=== PATIENT | female | born 1960 | race Caucasian/White ===

== ENCOUNTER 2017-03-26 14:55 | Outpatient (CLI) ==
[2015-05-02 14:33] VITALS: BMI 42.2
--- NOTE | 2017-03-26 15:41 | US ---
EXAM: ULTRASOUND LOWER EXTREMITY VENOUS DOPPLER EXAM HISTORY: Pain and left leg. FINDINGS: Left lower extremity venous Doppler exam. Real time adorno-scale, Doppler spectral analysis and color-flow Doppler imaging performed. The veins targeted for evaluation include the common femor al, greater saphenous, profundus, femoral, popliteal, peroneal, anterior tibial and posterior tibial. The evaluated veins demonstrated normal spontaneous flow and compression without evidence of throm bosis. IMPRESSION: No venous thrombosis identified within the areas evaluated.
== END 2017-03-26 14:56 | disposition home or self-care (01) ==
LOC: RAD 14:55
PROVIDERS: ATTEND Emergency Medicine
DX: M79.605 Pain in left leg (principal)

== ENCOUNTER 2017-03-27 10:37 | Outpatient (CLI) ==
[2015-05-02 14:33] VITALS: BMI 42.2
--- NOTE | 2017-03-27 11:58 | CT ---
Exam: CT of the left knee without intravenous contrast. Comparison: X-ray performed on 12/18/2011. Reason for exam: Pain in left knee. FINDINGS: No acute fracture or malalignment. There is moderate degenerative disease with tricompart mental osteophyte formation and joint space narrowing. There is a small to moderately sized joint ef fusion. Atherosclerotic disease is seen within the soft tissues. Impression: 1. No acute fracture or dislocation in the left knee. 2. Small to moderately sized joint effusion with inflammatory change. If clinical concern exists fo r soft tissue injury or ligamentous injury, MRI may be performed. 3. Moderate degenerative disease with tricompartmental arthrosis and joint space narrowing.
== END 2017-03-27 10:38 | disposition home or self-care (01) ==
LOC: RAD 10:37
PROVIDERS: ATTEND Emergency Medicine
DX: M25.562 Pain in left knee (principal)

== ENCOUNTER 2017-05-21 15:47 | Outpatient (CLI) ==
[2015-05-02 14:33] VITALS: BMI 42.2
--- NOTE | 2017-05-21 16:38 | US ---
EXAM: Bilateral carotid artery Doppler History: Dizziness and giddiness Technique: Multiple sonographic images through the bilateral internal carotid arteries were obtained . Color duplex Doppler was used to interrogate vascular flow. Findings: The right ICA peak systolic velocity is within normal limits measuring 0.7 meters per second. The ri ght ICA/cca PSV ratio is normal at 1.6. The right vertebral artery is patent and demonstrates antegr ruddy flow. Nye scale images demonstrate mild plaque buildup within the right internal carotid artery . The left ICA peak systolic velocity is moderately elevated measuring 1.6 meters per second. The left ICA/cca PSV ratio is moderately increased at 2.1. The left vertebral artery is patent and demonstra narendra antegrade flow. Nye scale images demonstrate mild to moderate plaque buildup within the left in ternal carotid artery. The left internal carotid artery is somewhat tortuous. Impression: 1. No significant hemodynamic stenosis of the right internal carotid artery. 2. Velocities and ratios indicate moderate, 50-69% hemodynamic stenosis of the left internal carotid artery but this might be spurious related to arterial tortuosity. Clarification can be obtained with a CTA of the neck if deemed clinically necessary.
== END 2017-05-21 15:48 | disposition home or self-care (01) ==
LOC: RAD 15:47
PROVIDERS: ATTEND Emergency Medicine
DX: N18.3 Chronic kidney disease, stage 3 (moderate) (principal); I10 Essential (primary) hypertension; L65.9 Nonscarring hair loss, unspecified; R42 Dizziness and giddiness; E11.9 Type 2 diabetes mellitus without complications; Z79.4 Long term (current) use of insulin
CPT/HCPCS: 36415; 80053; 80061; 82672; 83036; 84443; 85025

== ENCOUNTER 2017-05-26 14:20 | Inpatient (IN) ==
[2017-05-26] MEDS ORDERED: SODIUM CHLORIDE 1,000 ML IV SCH (15:00)
[2017-05-26 15:11] VITALS: BMI 43.6
--- NOTE | 2017-05-26 16:10 | CT ---
EXAM: CT chest without contrast. HISTORY: Shortness of breath. COMPARISON: Radiograph 05/02/2015, 10/10/2014. TECHNIQUE: Multiple axial images of the chest were obtained without intravenous contrast. Images we re reformatted in the sagittal and coronal planes. FINDINGS: Evaluation for lymphadenopathy is limited by lack of intravenous contrast. There has been previous sternotomy. Heart is mildly enlarged but atherosclerotic calcifications are present. No p ericardial effusion identified. There are calcified granulomatous changes noted bilaterally. Rounded subpleural consolidation in the lateral left lung measures approximately 3.2 x 2 cm on axial image 22. Additional curvilinear areas of consolidation seen in the posterior left lung with adjacent pleural thickening and a tiny amount of left pleural fluid. These findings are similar to the appearance on previous radiographs. Right lung is grossly clear. No pneumothorax identified. No acute abnormality seen in the upper abdomen. There has been previous gastric surgery. Degenerati ve changes present in the spine.. IMPRESSION: 1. Suspect left pleural parenchymal scarring with rounded atelectasis and tiny left pleural effusion , not significantly changed in appearance from radiographs dating back to 2014. 2. Evidence of prior granulomatous disease.
[2017-05-26] MEDS ORDERED: KAYEXALATE SUSP PO STA (16:11)
[2017-05-26] MEDS ORDERED: LASIX IVP STA (16:13)
[2017-05-26] MEDS ORDERED: DECADRON 4 MG/ML SDV IVP STA (16:15)
[2017-05-26] MEDS: ROCEPHIN 1 GM in SODIUM CHLORIDE 50 ML IV SCH (16:33)
[2017-05-26] MEDS: TYLENOL PO PRN (16:34)
[2017-05-26] MEDS: SODIUM CHLORIDE 1,000 ML IV SCH (16:34)
[2017-05-26] MEDS: TOPROL XL PO SCH (20:18)
[2017-05-26] MEDS ORDERED: INSULIN DEGLUDEC SUBCUT SCH (21:00)
[2017-05-26] MEDS: DUONEB NEB SCH (22:35)
[2017-05-27] MEDS: DUONEB NEB SCH ×2 (06:05→14:41)
[2017-05-27] MEDS: SODIUM CHLORIDE 1,000 ML IV SCH (06:06)
[2017-05-27] MEDS ORDERED: DECADRON 4 MG/ML SDV IVP STA (07:59)
[2017-05-27] MEDS ORDERED: NON-FORMULARY MEDICATION (Olmesartan Medoxomil [Benicar] 40 MG) PO SCH (09:00)
[2017-05-27] MEDS ORDERED: ISOSORBIDE MONONITRATE 120 MG PO SCH (09:00)
[2017-05-27] MEDS ORDERED: NON-FORMULARY MEDICATION (Bumetanide [Bumetanide] 2 MG) PO SCH (09:00)
[2017-05-27] MEDS: ROCEPHIN 1 GM in SODIUM CHLORIDE 50 ML IV SCH (09:01)
[2017-05-27] MEDS: BENICAR PO SCH (09:02)
[2017-05-27] MEDS: BUMEX PO SCH (09:03)
[2017-05-27] MEDS: IMDUR PO SCH (09:03)
[2017-05-27] MEDS: TOPROL XL PO SCH ×2 (09:03→20:35)
[2017-05-27] MEDS: HUMULIN R SUBCUT PRN ×3 (11:18→20:51)
[2017-05-27] MEDS ORDERED: KAYEXALATE SUSP PO STA (13:45)
[2017-05-27] MEDS: INSULIN DEGLUDEC 55 UNIT SUBCUT SCH (20:35)
[2017-05-27] MEDS ORDERED: BENADRYL PO STA (20:57)
[2017-05-27] MEDS ORDERED: SOLU-MEDROL 40 MG IVP STA (20:58)
[2017-05-27] MEDS ORDERED: INSULIN DEGLUDEC SUBCUT SCH (21:00)
[2017-05-28] MEDS: SODIUM CHLORIDE 1,000 ML IV SCH (02:20)
[2017-05-28] MEDS: HUMULIN R SUBCUT PRN ×2 (06:09→12:48)
[2017-05-28] MEDS: BENICAR PO SCH (09:36)
[2017-05-28] MEDS: BUMEX PO SCH (09:37)
[2017-05-28] MEDS: TOPROL XL PO SCH ×2 (09:38→20:55)
[2017-05-28] MEDS: IMDUR PO SCH (09:38)
[2017-05-28] MEDS: ROCEPHIN 1 GM in SODIUM CHLORIDE 50 ML IV SCH (09:40)
--- NOTE | 2017-05-28 11:23 | PN ---
DATE OF SERVICE: 05/27/17 SUBJECTIVE: The patient was admitted from the office yesterday for the COPD exacerbation secondary to pneumonia and acute on chronic heart failure and hyperkalemia. The patient was given a dose of Kayexalate. Potassium came down from 5.7 to 5.4. BNP was 659. REVIEW OF SYSTEMS: CONSTITUTIONAL: No fever, no chills. HEENT: Normal. ENDOCRINE: No weight gain, no weight loss. CVS: No angina symptoms. No CHF symptoms. No palpitations. No atypical chest pain for CAD. Shortness of breath. No PND, no orthopnea. RESPIRATORY: Cough and Congestion, no hemoptysis. GI: No nausea, no vomiting. No abdominal pain. : No hematuria. No polyuria. MUSCULOSKELETAL: No joint swelling. PSYCHIATRIC: Not anxious. No depression. No suicidal thoughts. No homicidal thoughts. SKIN: Intact. No rash. PHYSICAL EXAMINATION: V/S: Blood pressure 155/63, respiratory rate 20, heart rate 60, temperature 98.0 with saturation 97 on 2 liters nasal cannula. HEENT: Normocephalic, atraumatic. Mucosa dry. Pallor positive. No icterus. NECK: Supple. No JVD, no carotid bruit. No lymphadenopathy. LUNGS: Decreased and basilar crackles. Mild wheezing on the left side.No rales or rhonchi. HEART: S1, S2 normal. No S3. No murmur, gallop or regurgitation. ABDOMEN: Soft, nontender. Bowel sounds active. No rigidity. No rebound or guarding. No CVA tenderness. EXTREMITIES: No pedal edema. No clubbing or cyanosis MUSCULOSKELETAL: No joint swelling. NEUROLOGIC: Awake, alert, oriented times three. No focal deficit. LYMPHATIC: No lymph nodes palpable. SKIN: Intact. LABS: Sodium 139, potassium 5.4, chloride 105, bicarb 25, BUN 33, creatinine 1.36 and glucose 353. ASSESSMENT: 1. Acute on chronic heart failure 2. COPD exacerbation secondary to the community acquired pneumonia 3. Acute on chronic renal failure 4. Hyperkalemia 5. Diabetes 6. Coronary artery disease 7. Congestive heart failure PLAN: 1. Continue Rocephin 2. DUO NEBS 3. IV Fluids at 40ml per hour 4. Give one more dose of Kayexalate 5. Decadron shot 6. Daily I&O's TIME SPENT: More than 35 minutes ИВАН
--- NOTE | 2017-05-28 12:24 | DI ---
EXAM: Chest one view, frontal view only. HISTORY: Pneumonia follow-up. COMPARISON: 05/26/2017. FINDINGS: Median sternotomy wires and mediastinal surgical clips noted. Heart is mildly enlarged. Chronic left pleural effusion with adjacent pleural scarring is stable. Lungs otherwise clear. No p neumothorax identified. Osseous structures are intact. Since the prior study, there has been no sign ificant interval change. IMPRESSION: Stable left pleural parenchymal scarring.
[2017-05-28] MEDS: APRESOLINE PO SCH ×2 (17:18→20:55)
[2017-05-28] MEDS: INSULIN DEGLUDEC 55 UNIT SUBCUT SCH (20:56)
[2017-05-29] MEDS: ROCEPHIN 1 GM in SODIUM CHLORIDE 50 ML IV SCH (08:58)
[2017-05-29] MEDS: APRESOLINE PO SCH ×2 (08:59→22:54)
[2017-05-29] MEDS: IMDUR PO SCH (08:59)
[2017-05-29] MEDS: BENICAR PO SCH (08:59)
[2017-05-29] MEDS: TOPROL XL PO SCH ×2 (09:01→22:54)
[2017-05-29] MEDS: BUMEX PO SCH (09:01)
[2017-05-29] MEDS ORDERED: SODIUM CHLORIDE 1,000 ML IV SCH ×2 (13:00→15:30)
[2017-05-29] MEDS ORDERED: ATROVENT 0.02% NEB NEB SCH (14:00)
--- NOTE | 2017-05-29 14:37 | PN ---
DATE OF SERVICE: 05/28/17 SUBJECTIVE: Still short of breath with minimal exertion, cough and congestion, unable to bring up any phlegm. No fever or chills. Stressed out being at the hospital. BUN and creatinine are stable. Potassium normal today at 5.1. REVIEW OF SYSTEMS: CONSTITUTIONAL: No fever, no chills. HEENT: Normal. ENDOCRINE: No weight gain, no weight loss. CVS: No angina symptoms. No CHF symptoms. No palpitations. No atypical chest pain for CAD. Shortness of breath on minimal exertion. No PND, no orthopnea. RESPIRATORY: Cough and congestion. No hemoptysis. GI: No nausea, no vomiting. No abdominal pain. : No hematuria. No polyuria. MUSCULOSKELETAL: No joint swelling. PSYCHIATRIC: Not anxious. No depression. No suicidal thoughts. No homicidal thoughts. SKIN: Intact. No rash. PHYSICAL EXAMINATION: V/S: BP 167/63, respiratory rate 18, heart rate 53, temperature 97.6, saturation 97% on room air. HEENT: Normocephalic, atraumatic. Mucosa dry. NECK: Supple. No JVD, no carotid bruit. No lymphadenopathy. LUNGS: Decreased with basilar crackles. Mild wheezing on left side. HEART: S1, S2 normal. No S3. No murmur, gallop or regurgitation. ABDOMEN: Soft, nontender. Bowel sounds active. No rigidity. No rebound or guarding. No CVA tenderness. EXTREMITIES: 1+ edema. No clubbing or cyanosis MUSCULOSKELETAL: No joint swelling. NEUROLOGIC: Awake, alert, oriented times three. No focal deficit. LYMPHATIC: No lymph nodes palpable. SKIN: Intact. LABS: Sodium 139, potassium 5.1, chloride 103, bicarb 24, BUN 38, creatinine 1.31, glucose 322. White count 8.90, hemoglobin 9.5, hematocrit 27.3, platelet count 169. ASSESSMENT: 1. COPD EXACERBATION SECONDARY TO LEFT BASE PNEUMONIA. THE PATIENT HAS CHRONIC SCARRING OF THE LUNG. 2. ACUTE ON CHRONIC RENAL FAILURE. 3. HYPERKALEMIA, WHICH IS BETTER. 4. HYPERTENSION. 5. DIABETES. 6. CAD. 7. CHF. PLAN: 1. Continue Rocephin. 2. Solu-Medrol 40 was given yesterday. 3. Duonebs are on hold because there was some question, confusion that she may be allergic. 4. Rocephin 1 gm daily. 5. Bumex 2 mg p.o. daily. 6. Daily I & O. 7. Will follow with the patient in daily rounds. TIME SPENT: More than 35 minutes MTDD
[2017-05-29] MEDS: TYLENOL PO PRN (15:38)
[2017-05-29] MEDS: INSULIN DEGLUDEC 55 UNIT SUBCUT SCH (22:53)
[2017-05-30] MEDS ORDERED: BUMEX PO SCH (09:00)
[2017-05-30] MEDS: ROCEPHIN 1 GM in SODIUM CHLORIDE 50 ML IV SCH (09:08)
[2017-05-30] MEDS: BENICAR PO SCH (09:08)
[2017-05-30] MEDS: TOPROL XL PO SCH (09:09)
[2017-05-30] MEDS: IMDUR PO SCH (09:09)
[2017-05-30] MEDS: APRESOLINE PO SCH (09:09)
[2017-05-30 14:24] VITALS: BP 146/58; TEMP 98.1
--- NOTE | 2017-06-25 15:52 | DS ---
DATE OF SERVICE: 05/30/17 FINAL DIAGNOSIS: 1. COPD EXACERBATION SECONDARY TO COMMUNITY ACQUIRED PNEUMONIA 2. ACUTE ON CHRONIC HEART FAILURE 3. ACUTE ON CHRONIC RENAL FAILURE 4. DIABETES MELLITUS 5. CORONARY ARTERY DISEASE 6. CORONARY ARTERY BYPASS GRAFTING 7. PULMONARY HYPERTENSION 8. CKD, STAGE 3 9. OSTEOARTHRITIS 10. ANXIETY 11. GERD 12. TOTAL ABDOMINAL HYSTERECTOMY 13. APPENDECTOMY 14. UMBILICAL HERNIA REPAIR DISCHARGE INSTRUCTIONS: 1. Discharge the patient home. 2. Followup with Dr. Mullins in the Clinic on 06/03/17. Call the office for appointment time. If need to be seen sooner, return to the ER or make appointment for Thursday. 3. May not return to work until seen in the office. MEDICATIONS AT DISCHARGE: Bumex 1 mg p.o. daily Tylenol p.r.n. Tresiba 55 units at bedtime Regular insulin coverage Isosorbide 120 mg p.o. daily Benicar 40 mg p.o. daily NEW PRESCRIPTIONS: Hydralazine 25 mg p.o. b.i.d. Metoprolol decreased from 50 mg to 25 mg p.o. b.i.d. (change in dose) Prednisone 10 mg p.o. with meals twice a day for 5 days Keflex 500 mg p.o. twice a day for 5 days OF NOTE: The patient was on Metoprolol Succinate b.i.d. but we changed it to 25 mg b.i.d. to Tartrate as it is the short-acting one. DIET INSTRUCTIONS: 1800 ADA diet ACTIVITY: As much as tolerated. SMOKING: Never smoker DISEASE SPECIFIC EDUCATION: COPD CHF Fluid overload Salt intake discussed - the patient verbalizes understanding. HOSPITAL COURSE: This is a 57-year-old female with multiple medical problems of CAD, CHF, hypertension, history of bypass surgery. She came to the office initially with cough and congestion. She didn't want to be admitted, wanted to be treated as outpatient but condition was gradually getting worse. On 05/21 BUN was 42 and 1.56 which was elevated. At that time the patient was advised to come back and see us. She came back and patient had shortness of breath, cough and congestion. At that time, she was directly admitted from the office to the hospital. BNP was 659, BUN 33, creatinine 1.42. Lasix was given, potassium 5.7 , Kayexalate was given. Breathing treatment Duonebs were given. The patient was given Decadron shot. HBA1C is ordered. CT chest shows some congestion and pneumonia. Antibiotic Rocephin also given. On the third day, the patient had some kind of a reaction where she was feeling funny, itching to face after having Duoneb treatment. We were concerned that it may be a reaction to Duonebs so this was stopped and given a dose of Benadryl and steroids. BUN and creatinine gradually worsened up to 50 and 50/7. Urine output is good. Bumex decreased. Blood pressure was elevated 167/63, 174/73 so we ordered Hydralazine 10 mg twice a day then increased to 25 mg twice a day. As heart rate was low 50s to 54 and the patient was feeling light-headed, Metoprolol Succinate was decreased from 50 mg b.i.d. to 25 mg b.i.d. As of today, the patient is feeling better, less short of breath, less coughing, not dizzy anymore. At that time, the patient was discharged home. We will follow in the [facility] within 4 to 5 days. TIME SPENT: MORE THAN 65 MINUTES ИВАН
--- NOTE | 2017-06-26 11:24 | PN ---
DATE OF SERVICE: 05/29/17 SUBJECTIVE: The patient had an episode where her sugars were 70 and started feeling weakness. She began some cookies and juice to bring the sugar up. She has been feeling lightheaded. Heart rate is around 50's and when she was 53, 52 , 55, 50, she was feeling some lightheadedness. Shortness of breath with exertion. Some coughing with production of any phlegm. X-ray from yesterday showed the left basilar lung chronic changes. BUN went up to 50 and creatinine 1.58. No chest pain. REVIEW OF SYSTEMS: CONSTITUTIONAL: No fever, no chills. Weakness and lightheadedness. HEENT: Normal. ENDOCRINE: No weight gain, no weight loss. CVS: No angina symptoms. No CHF symptoms. No palpitations. No atypical chest pain for CAD. No shortness of breath. No PND, no orthopnea. RESPIRATORY: Cough, no hemoptysis. GI: No nausea, no vomiting. No abdominal pain. : No hematuria. No polyuria. MUSCULOSKELETAL: No joint swelling. PSYCHIATRIC: Not anxious. No depression. No suicidal thoughts. No homicidal thoughts. SKIN: Intact. No rash. PHYSICAL EXAMINATION: V/S: Blood pressure 130/62, respiratory rate 18, heart rate 58, temperature 97.6 , saturation 99. HEENT: Normocephalic, atraumatic. Mucosa dry. Pallor positive. No icterus. NECK: Supple. No JVD, no carotid bruit. No lymphadenopathy. LUNGS: Decreased basilar crackles, left more than the right. No rales or rhonchi. HEART: S1, S2 normal. No S3. No murmur, gallop or regurgitation. ABDOMEN: Soft, nontender. Bowel sounds active. No rigidity. No rebound or guarding. No CVA tenderness. EXTREMITIES: 1+ edema. No clubbing or cyanosis MUSCULOSKELETAL: No joint swelling. NEUROLOGIC: Awake, alert, oriented times three. No focal deficit. LYMPHATIC: No lymph nodes palpable. SKIN: Intact and dry. LABS: BUN and creatinine 50 and 1.58. Sodium 141, potassium 3.8, chloride 103 , white count 9.96, hemoglobin 10.4, hematocrit 29.6, platelet count 185. ASSESSMENT: 1. HYPOGLYCEMIA, 70, WHICH NEEDED SOME FOOD TO BE GIVEN TO THE PATIENT 2. BRADYCARDIA, SYMPTOMATIC WITH LIGHTHEADEDNESS. WILL CHANGE HER MEDICATIONS. 3. WORSENING KIDNEY FUNCTION 4. COPD EXACERBATION WITH LEFT BASILAR PNEUMONIA, COMMUNITY ACQUIRED, WHICH IS GETTING BETTER 5. ACUTE ON CHRONIC HEART FAILURE PLAN: 1. Start the IV fluids at 40 ml per hour. 2. Decrease the Metoprolol to 25 mg p.o. BID. 3. Increase the Hydralazine 25 mg every 12 hours. 4. Rocephin 1 gram daily. 5. Will give Ipratropium nebulization every 8 hours. 6. Daily I & O's. TIME SPENT: More than 35 minutes MTDD
== END 2017-05-30 14:36 | disposition home or self-care (01) | DRG 193 ==
LOC: MEDSURG A 14:20
PROVIDERS: ADMIT Emergency Medicine; ATTEND Emergency Medicine
DX: J18.9 Pneumonia, unspecified organism (principal); I50.23 Acute on chronic systolic (congestive) heart failure; J44.1 Chronic obstructive pulmonary disease with (acute) exacerbation; N17.9 Acute kidney failure, unspecified; R06.02 Shortness of breath; E11.22 Type 2 diabetes mellitus with diabetic chronic kidney disease; N18.3 Chronic kidney disease, stage 3 (moderate); I25.10 Atherosclerotic heart disease of native coronary artery without angina pectoris; F41.9 Anxiety disorder, unspecified; I27.20 Pulmonary hypertension, unspecified; E87.5 Hyperkalemia; J98.4 Other disorders of lung; K21.9 Gastro-esophageal reflux disease without esophagitis; E16.2 Hypoglycemia, unspecified; L50.9 Urticaria, unspecified; T48.6X5A Adverse effect of antiasthmatics, initial encounter; Y92.230 Patient room in hospital as the place of occurrence of the external cause; M19.90 Unspecified osteoarthritis, unspecified site; Z95.1 Presence of aortocoronary bypass graft; Z79.4 Long term (current) use of insulin; Z98.890 Other specified postprocedural states
CPT/HCPCS: 36415; 80053; 81001; 82550; 82803; 82962; 83880; 84484; 85025; 87086; 93005; 93010; 94640; 97802

== ENCOUNTER 2017-05-26 14:47 | Outpatient (CLI) ==
[2015-05-02 14:33] VITALS: BMI 42.2
== END 2017-05-26 14:48 | disposition home or self-care (01) ==
LOC: RHC-LAB 14:47
PROVIDERS: ATTEND Emergency Medicine
DX: J02.9 Acute pharyngitis, unspecified (principal); R68.89 Other general symptoms and signs
CPT/HCPCS: 87651; 87804

== ENCOUNTER 2017-06-03 15:04 | Outpatient (CLI) | payer OTHER ==
[2015-05-02 14:33] VITALS: BMI 42.2
== END 2017-06-03 15:05 | disposition home or self-care (01) ==
LOC: RHC-LAB 15:04
PROVIDERS: ATTEND Emergency Medicine
DX: N18.3 Chronic kidney disease, stage 3 (moderate) (principal)
CPT/HCPCS: 36415; 80053

== ENCOUNTER 2017-06-09 15:47 | Outpatient (CLI) ==
[2015-05-02 14:33] VITALS: BMI 42.2
[2017-06-09 18:02] VITALS: BMI 42.7
== END 2017-06-09 15:48 | disposition home or self-care (01) ==
LOC: RHC-LAB 15:47
PROVIDERS: ATTEND Emergency Medicine
DX: N18.3 Chronic kidney disease, stage 3 (moderate) (principal)
CPT/HCPCS: 36415; 80053

== ENCOUNTER 2017-06-09 17:24 | Inpatient (IN) ==
[2017-06-09 18:02] VITALS: BMI 42.7
[2017-06-09] MEDS ORDERED: KAYEXALATE SUSP PO STA (18:35)
[2017-06-09] MEDS: SODIUM CHLORIDE 1,000 ML IV SCH (18:49)
[2017-06-09] MEDS ORDERED: APRESOLINE ONE (20:14)
[2017-06-09] MEDS: LOPRESSOR PO SCH (20:18)
[2017-06-09] MEDS ORDERED: INSULIN DEGLUDEC 55 UNIT SQ SCH (21:00)
[2017-06-09] MEDS ORDERED: NON-FORMULARY MEDICATION (Hydralazine Hcl [Hydralazine Hcl] 25 MG) PO SCH (21:00)
[2017-06-10] MEDS ORDERED: NEOSPORIN TP SCH (07:30)
[2017-06-10] MEDS ORDERED: ISOSORBIDE MONONITRATE 120 MG PO SCH (09:00)
--- NOTE | 2017-06-10 09:39 | HP ---
DATE OF SERVICE: 06/09/17 CHIEF COMPLAINT: Abnormal labs. HISTORY OF PRESENT ILLNESS: This is a 57 year old female with a history of COPD, CHF and chronic kidney disease. Did do the outpatient blood work which showed her BUN is 60, creatinine 1.76 and potassium 6.1. With history of shortness of breath the patient is being admitted to the hospital for IV fluids and to correct the potassium. REVIEW OF SYSTEMS: CONSTITUTIONAL: No fever, no chills. Weakness and tiredness. HEENT: Normal. ENDOCRINE: No weight gain; no weight loss. CVS: No chest pain. No PND, no orthopnea. Shortness of breath. No PND, no orthopnea. RESPIRATORY: Cough, Congestion. No hemoptysis. GI: No nausea, no vomiting. No abdominal pain. No melena. : No hematuria. No polyuria. MUSCULOSKELETAL: No joint swelling. Leg edema. PSYCHIATRIC: Not anxious. No depression. No suicidal thoughts. No homicidal thoughts. SKIN: Intact, no open lesions. PAST MEDICAL HISTORY: CAD CHF Hypertension Dyslipidemia Atrial fibrillation status post ablation in 2009 Migraines Pulmonary hypertension Pleural effusion Umbilical hernia repair Chronic kidney disease stage 3 Severe anemia Hyperkalemia right now PAST SURGICAL HISTORY: CABG Neal en Y surgery Cholecystectomy Hysterectomy Umbilical herniorrhaphy PERSONAL HISTORY: The patient does not smoke or drink. She works at the school. Family History is significant for the heart problems and diabetes. MEDICATIONS: Isosorbide Benicar Bumetanide Metoprolol Hydralazine Insulin Neomycin ALLERGIES: Albuterol Epinephrine Gabapentin Hydrocodone PHYSICAL EXAMINATION: V/S: Blood pressure 150/66, respiratory rate 18, heart rate 66 and temperature 97.2 with saturation 97. HEENT: Atraumatic, normocephalic. No scleral icterus. Mucosa dry. NECK: Supple. No JVD, no bruit. No lymphadenopathy. No thyromegaly. HEART: S1, S2 normal. No murmur. No cyanosis or clubbing. No ascites. LUNGS: Decreased and basilar crackles. Clear to auscultation. No rales or rhonchi. ABDOMEN: Soft, nontender. Bowel sounds are active. No CVA tenderness. No rigidity or guarding. EXTREMITIES: 1+ edema. No cyanosis or clubbing MUSCULOSKELETAL: Normal joints, no swelling. NEUROLOGIC: The patient is awake and alert oriented times three SKIN: Intact; no open lesions. Dry. LYMPHATIC: No lymph nodes palpable. LABS: BUN 60, creatinine 1.76, glucose 227, Sodium 137, potassium 6.1, chloride 107, bicarb 24 ASSESSMENT: 1. Acute on chronic renal failure 2. Hyperkalemia 3. Coronary artery disease 4. Congestive heart failure 5. Bypass surgery 6. Diabetes mellitus 7. Chronic kidney disease 8. Dependant edema PLAN: 1. Admit patient to the regular floor 2. CBC and CMP today and daily 3. Cardiac enzymes and troponin 4. IV fluids 5. Hold Bumex TIME SPENT: MORE THAN 75 minutes MTDD
[2017-06-10] MEDS: BACTROBAN TP SCH ×2 (09:43→21:04)
[2017-06-10] MEDS: LOPRESSOR PO SCH ×2 (10:00→21:03)
[2017-06-10] MEDS: IMDUR PO SCH (10:00)
[2017-06-10] MEDS: APRESOLINE PO SCH ×2 (10:00→21:03)
[2017-06-10] MEDS: HUMULIN R SUBCUT PRN ×2 (12:30→21:03)
[2017-06-10] MEDS ORDERED: COZAAR PO ONE (14:43)
[2017-06-10] MEDS ORDERED: LOPRESSOR PO ONE (14:45)
--- NOTE | 2017-06-10 15:55 | DI ---
EXAM: Two-view chest HISTORY: Shortness of breath TECHNIQUE: Frontal and lateral views of the chest were obtained. Comparison 05/28/2017. FINDINGS: The heart is stable size. Midline sternotomy wires are again seen. There is stable blunt ing of the left costophrenic angle. Lungs are clear. The pulmonary vasculature appears normal. IMPRESSION: Stable appearance of pleural scarring on the left. Otherwise no active cardiopulmonary disease.
[2017-06-10] MEDS: SODIUM CHLORIDE 1,000 ML IV SCH (20:29)
[2017-06-10] MEDS ORDERED: INSULIN DEGLUDEC 55 UNIT SUBCUT SCH (21:00)
[2017-06-11] MEDS: IMDUR PO SCH (09:51)
[2017-06-11] MEDS: LOPRESSOR PO SCH ×2 (09:52→21:30)
[2017-06-11] MEDS: BACTROBAN TP SCH ×2 (09:52→21:23)
[2017-06-11] MEDS: APRESOLINE PO SCH ×2 (09:52→21:22)
[2017-06-11] MEDS ORDERED: BUMEX PO ONE (13:18)
[2017-06-11] MEDS ORDERED: LOPRESSOR PO ONE (14:45)
[2017-06-11] MEDS ORDERED: TYLENOL PO STA (17:38)
[2017-06-11] MEDS: INSULIN DEGLUDEC 50 UNIT SUBCUT SCH (21:26)
[2017-06-11] MEDS: SODIUM CHLORIDE 1,000 ML IV SCH (21:28)
[2017-06-12] MEDS: BACTROBAN TP SCH ×2 (09:05→21:36)
[2017-06-12] MEDS: IMDUR PO SCH (09:06)
[2017-06-12] MEDS: APRESOLINE PO SCH ×2 (09:06→21:37)
[2017-06-12] MEDS: LOPRESSOR PO SCH ×2 (09:06→21:37)
[2017-06-12] MEDS: BENICAR PO SCH (09:07)
[2017-06-12] MEDS: HUMULIN R SUBCUT PRN (13:09)
[2017-06-12] MEDS: INSULIN DEGLUDEC 50 UNIT SUBCUT SCH (21:53)
[2017-06-13] MEDS: SODIUM CHLORIDE 1,000 ML IV SCH ×2 (03:11→03:47)
[2017-06-13] MEDS: BENICAR PO SCH (08:33)
[2017-06-13] MEDS: APRESOLINE PO SCH (08:33)
[2017-06-13] MEDS: IMDUR PO SCH (08:33)
[2017-06-13] MEDS: LOPRESSOR PO SCH (08:33)
[2017-06-13] MEDS: BACTROBAN TP SCH (08:34)
[2017-06-13] MEDS ORDERED: DECADRON 4 MG/ML SDV IVP STA (11:14)
[2017-06-13 11:18] VITALS: BP 118/56; TEMP 98.1
[2017-06-13] MEDS: HUMULIN R SUBCUT PRN (11:27)
--- NOTE | 2017-07-03 15:12 | PN ---
DATE OF SERVICE: 06/10/17 SUBJECTIVE: The patient was admitted with hyperkalemia and acute on chronic renal failure. Leg edema is better. Potassium is down to 5.1 from 6.0. REVIEW OF SYSTEMS: CONSTITUTIONAL: No fever, no chills. HEENT: Normal. ENDOCRINE: No weight gain, no weight loss. CVS: No angina symptoms. No CHF symptoms. No palpitations. No atypical chest pain for CAD. Some shortness of breath. No PND, no orthopnea. RESPIRATORY: No cough, no hemoptysis. GI: No nausea, no vomiting. No abdominal pain. : No hematuria. No polyuria. MUSCULOSKELETAL: No joint swelling. PSYCHIATRIC: Not anxious. No depression. No suicidal thoughts. No homicidal thoughts. SKIN: Intact. No rash. PHYSICAL EXAMINATION: V/S: Blood pressure 101/48, respiratory rate 16, heart rate 60, temperature 98.0 with saturation 97%. HEENT: Normocephalic, atraumatic. Mucosa dry. Pallor positive. No icterus. NECK: Supple. No JVD, no carotid bruit. No lymphadenopathy. LUNGS: Decreased and basilar crackles. Clear to auscultation. No rales or rhonchi. HEART: S1, S2 normal. No S3. No murmur, gallop or regurgitation. ABDOMEN: Soft, nontender. Bowel sounds active. No rigidity. No rebound or guarding. No CVA tenderness. EXTREMITIES: 1+ edema. No clubbing or cyanosis MUSCULOSKELETAL: No joint swelling. NEUROLOGIC: Awake, alert, oriented times three. No focal deficit. LYMPHATIC: No lymph nodes palpable. SKIN: Intact. LABS: WBC 9.18, hgb 9.2, hct 26.3, plt count 163, sodium 138, potassium 5.1, chloride 101, bicarb 25, BUN 55, creatinine 1.71, glucose 178. ASSESSMENT: 1. Acute on chronic renal failure 2. Hyperkalemia which is better today 3. Anemia 4. Coronary artery disease 5. Congestive heart failure 6. Chronic kidney disease 7. Atrial fibrillation status ablation in 2009 8. Pulmonary hypertension PLAN: 1. Will do anemia profile 2. Hold the blood pressure medication as patient's blood pressure is on lower side 3. Accu-checks with coverage TIME SPENT: More than 35 minutes MTDD
--- NOTE | 2017-07-08 13:00 | PN ---
DATE OF SERVICE: 06/11/17 SUBJECTIVE: The patient was admitted with hyperkalemia and acute on chronic renal failure. With IV fluids, she did gain 5 pounds. Feeling better and less short of breath. Potassium is 4.6 today. Bun and creatinine has improved 47 and 1.32. Hemoglobin has been steady. REVIEW OF SYSTEMS: Still has some shortness of breath with exertion. Otherwise , the leg edema has improved. PHYSICAL EXAMINATION: V/S: Blood pressure 172/70, respiratory rate 12, heart rate 60, temperature 98.0 , saturation is 97. HEENT: Normocephalic, atraumatic. Mucosa dry. Pallor positive. No icterus. NECK: Supple. No JVD, no carotid bruit. No lymphadenopathy. LUNGS: Bilateral air entry is decreased and basilar crackles. No rales or rhonchi. HEART: S1, S2 normal. No S3. No murmur, gallop or regurgitation. ABDOMEN: Soft, nontender. Bowel sounds active. No rigidity. No rebound or guarding. No CVA tenderness. EXTREMITIES: No pedal edema. No clubbing or cyanosis. MUSCULOSKELETAL: No joint swelling. NEUROLOGIC: Awake, alert, oriented times three. No focal deficit. LYMPHATIC: No lymph nodes palpable. SKIN: Intact. LABS: White count 7.45, hemoglobin 9.3, hematocrit 27.4, platelet count 148, sodium 143, potassium 4.6, chloride 111, bicarb 24, BUN 47, creatinine 1.37. ASSESSMENT: 1. ACUTE ON CHRONIC RENAL FAILURE 2. HYPERKALEMIA 3. CORONARY ARTERY DISEASE 4. CONGESTIVE HEART FAILURE 5. DEPENDENT LEG EDEMA 6. DIABETES 7. HYPOGLYCEMIA TODAY. PLAN: 1. Decrease the Tresiba to 50 units. 2. Still keep holding the Losartan and will give one dose of Bumex 1 mg today, as the patient gained 5 pounds. 3. No salt diet. 4. Keep the legs elevated when sitting. The patient's friend is in the room and discussed the prognosis with him too. TIME SPENT: More than 35 minutes MTDD
--- NOTE | 2017-07-08 13:12 | PN ---
DATE OF SERVICE: 06/12/17 SUBJECTIVE: The patient has admitted with hyperkalemia, acute on chronic renal failure. The patient was given a dose of Bumex yesterday for elevated weight of 5 pounds. BUN jumped from 46 to 50 today. Blood pressure has been better. Still having dizziness whenever she walks. Otherwise, no nausea, vomiting. Shortness of breath is stable. Leg edema is improved. REVIEW OF SYSTEMS: CONSTITUTIONAL: No fever, no chills. HEENT: Normal. ENDOCRINE: No weight gain, no weight loss. CVS: No angina symptoms. No CHF symptoms. No palpitations. No atypical chest pain for CAD. Shortness of breath. No PND, no orthopnea. RESPIRATORY: No cough, no hemoptysis. GI: No nausea, no vomiting. No abdominal pain. : No hematuria. No polyuria. MUSCULOSKELETAL: No joint swelling. PSYCHIATRIC: Not anxious. No depression. No suicidal thoughts. No homicidal thoughts. SKIN: Intact. No rash. PHYSICAL EXAMINATION: V/S: Blood pressure 149/53, respiratory rate 18, heart rate 57, temperature 97.6 , saturation 99. HEENT: Normocephalic, atraumatic. Mucosa dry. Pallor positive. No icterus. NECK: Supple. No JVD, no carotid bruit. No lymphadenopathy. LUNGS: Decreased and clear. No rales or rhonchi. HEART: S1, S2 normal. No S3. No murmur, gallop or regurgitation. ABDOMEN: Soft, nontender. Bowel sounds active. No rigidity. No rebound or guarding. No CVA tenderness. EXTREMITIES: 1+ edema. No clubbing or cyanosis. MUSCULOSKELETAL: No joint swelling. NEUROLOGIC: Awake, alert, oriented times three. No focal deficit. LYMPHATIC: No lymph nodes palpable. SKIN: Intact. LABS: White count 7.16, hemoglobin 9.4, hematocrit 27.3, platelet count 153, sodium 142, potassium 4.6, chloride 111, bicarb 26, BUN 50, creatinine 1.36, glucose 58. ASSESSMENT: 1. HYPOGLYCEMIA 2. HYPERKALEMIA, WHICH IS BETTER 3. ACUTE ON CHRONIC RENAL FAILURE 4. CONGESTIVE HEART FAILURE 5. CORONARY ARTERY DISEASE 6. CHRONIC KIDNEY DISEASE 7. ANEMIA PLAN: 1. Continue Tresiba 50 units. 2. Hypoglycemia discussed with the patient in detail. 3. Continue the Benicar 10 mg and will start today instead of 40 mg. 4. Metoprolol 25 mg twice daily. 5. IV fluids at 40 ml per hour. 6. Continue to monitor the I & O's. TIME SPENT: More than 35 minutes MTDD
--- NOTE | 2017-07-08 13:53 | DS ---
DATE OF SERVICE: 06/13/17 FINAL DIAGNOSIS: 1. HYPERKALEMIA 2. ACUTE ON CHRONIC RENAL FAILURE 3. ACUTE ON CHRONIC HEART FAILURE 4. CORONARY ARTERY DISEASE 5. CONGESTIVE HEART FAILURE 6. CHRONIC KIDNEY DISEASE 7. ANEMIA 8. DIZZINESS 9. STATUS POST HYPOGLYCEMIA PLAN: 1. Discharge the patient home. 2. Change of the medications: Benicar is now 20 mg, take 1/2 tablet daily. Decrease the Tresiba to 50 units. Bumex 1 mg every other day. 3. Keep the legs elevated. 4. No salt diet. Cardiac and diabetic diet. 5. Follow up with the [facility] within 4-5 days. 6. Continue Hydralazine 25 mg twice daily. 7. Isosorbide 120 mg p.o. daily. 8. Metoprolol 25 mg p.o. twice daily. 9. Activity: as much as tolerated. DISEASE SPECIFIC EDUCATION: About the chronic kidney disease, hyperkalemia, dehydration were discussed, verbalized understanding. HOSPITAL COURSE: Delmy Ambrocio, who was recently discharged from the hospital for the chronic obstructive pulmonary disease exacerbation, bronchitis and congestive heart failure. Bumex was decreased when she came to the office. CBC and CMP was done, which showed the potassium was 6.1. BUN was elevated up to 68, at that time the patient was advised to be admitted. She came to the hospital and was started on the Kayexalate. Bumex was un held. IV fluids at 40 ml per hour was started, which did decrease the BUN from 60 to 55 then 47 and then 50. She did gain 5 pounds, so a dose of Bumex was again given p.o. Meanwhile, the patient had a hypoglycemia episode, so Tresiba was decreased to 50 units from 55 units, which did maintain the blood sugars. She was up and about walking with less dizziness, more activity. No nausea or vomiting or diarrhea. Shortness of breath has been stable. At that time, the patient was discharged with a change of medication. All of the medication side effects have been discussed with the patient in detail. She verbalized understanding. TIME SPENT: MORE THAN 65 MINUTES MTDD
== END 2017-06-13 12:10 | disposition home or self-care (01) | DRG 684 ==
LOC: MEDSURG A 17:24
PROVIDERS: ADMIT Emergency Medicine; ATTEND Emergency Medicine
DX: N17.9 Acute kidney failure, unspecified (principal); E87.5 Hyperkalemia; N18.9 Chronic kidney disease, unspecified; R06.02 Shortness of breath; I50.9 Heart failure, unspecified; E11.649 Type 2 diabetes mellitus with hypoglycemia without coma; E11.9 Type 2 diabetes mellitus without complications; I48.91 Unspecified atrial fibrillation; I27.20 Pulmonary hypertension, unspecified; D64.9 Anemia, unspecified; I25.10 Atherosclerotic heart disease of native coronary artery without angina pectoris; R42 Dizziness and giddiness; Z79.4 Long term (current) use of insulin; Z79.899 Other long term (current) drug therapy; Z98.84 Bariatric surgery status
CPT/HCPCS: 36415; 80053; 81001; 82550; 82607; 82728; 82746; 82962; 83540; 83550; 84466; 84484; 85025; 85045; 87081; 93005; 93010; 97802

== ENCOUNTER 2017-06-16 16:12 | Outpatient (CLI) | payer OTHER | END 2017-06-16 16:13 | disposition home or self-care (01) | LOC: LAB 16:12 | PROVIDERS: ATTEND Emergency Medicine | DX: N18.3 Chronic kidney disease, stage 3 (moderate) (principal); I10 Essential (primary) hypertension; E11.9 Type 2 diabetes mellitus without complications; L65.9 Nonscarring hair loss, unspecified | CPT/HCPCS: 36415; 80053 ==

== ENCOUNTER 2017-06-25 14:30 | Outpatient (CLI) | END 2017-06-25 14:31 | disposition home or self-care (01) | LOC: RHC-LAB 14:30 | PROVIDERS: ATTEND Emergency Medicine | DX: N18.3 Chronic kidney disease, stage 3 (moderate) (principal); I10 Essential (primary) hypertension | CPT/HCPCS: 36415; 80053 ==

== ENCOUNTER 2017-06-30 15:01 | Outpatient (CLI) | END 2017-06-30 15:02 | disposition home or self-care (01) | LOC: RHC-LAB 15:01 | PROVIDERS: ATTEND Emergency Medicine | DX: N18.3 Chronic kidney disease, stage 3 (moderate) (principal); I10 Essential (primary) hypertension | CPT/HCPCS: 36415; 80053 ==

== ENCOUNTER 2017-07-01 14:25 | Outpatient (CLI) ==
--- NOTE | 2017-07-01 16:33 | CT ---
Exam: CT abdomen pelvis without intravenous contrast. Comparison: 01/30/2015. Reason for exam: Generalized abdominal pain. FINDINGS: Nodular pleural-based consolidation in the left lung base measuring up to 3 cm with small pleural effusions/pleural thickening. Image interpretation is limited by the lack of intravenous contrast administration. The partially imaged operative changes are seen after midline sternotomy. The gallbladder has been removed. Surgical changes are seen in the upper abdomen. The spleen, adrenal glands, and pancreas appear grossly unremarkable. No hydronephrosis, hydroureter, or nephrolithiasis is seen in either kidney. The bladder appears grossly unremarkable. Operative changes are seen after abdominal mesh repair. No focal small bowel dilatation or transition point. The appendix is not seen. No inflammatory changes are seen in the expected location of the appendix. No intra-abdominal free air or pelvic free fluid. No suspicious appearing osteoblastic or osteolytic lesions. Impression: 1. No acute inflammatory findings are seen within the abdomen or pelvis. 2. Nodular consolidation with pleural thickening/effusion in the left lung base. Imaging findings a ppear similar to the chest CT performed on 05/26/2017.
== END 2017-07-01 14:26 | disposition home or self-care (01) ==
LOC: RAD 14:25
PROVIDERS: ATTEND Emergency Medicine
DX: R10.84 Generalized abdominal pain (principal); K59.01 Slow transit constipation; N18.3 Chronic kidney disease, stage 3 (moderate); I10 Essential (primary) hypertension

== ENCOUNTER 2017-07-06 06:29 | Outpatient (CLI) | END 2017-07-06 06:30 | disposition home or self-care (01) | LOC: LAB 06:29 | PROVIDERS: ATTEND Emergency Medicine | DX: R00.2 Palpitations (principal); E87.5 Hyperkalemia; N18.3 Chronic kidney disease, stage 3 (moderate) | CPT/HCPCS: 36415; 80053; 93005; 93010 ==

== ENCOUNTER 2017-07-24 15:32 | Inpatient (IN) ==
[2017-07-24 16:07] VITALS: BMI 45.7
[2017-07-24] MEDS ORDERED: LASIX IVP STA (16:22)
[2017-07-24] MEDS ORDERED: NON-FORMULARY MEDICATION (Cholecalciferol (Vitamin D3) [Vitamin D3] 5,000 UNIT) PO SCH (16:30)
--- NOTE | 2017-07-24 16:49 | DI ---
EXAM: Chest one view, frontal view only. HISTORY: Shortness of breath. COMPARISON: 06/10/2017. FINDINGS: Median sternotomy wires are present. Heart size is at the upper limits of normal. Chroni c left basilar pleural parenchymal changes are stable. The lungs are otherwise clear without pneumot horax. No right pleural effusion identified. No acute osseous abnormalities seen. Since the prior study, there has been no significant interval change. IMPRESSION: No acute cardiopulmonary process.
[2017-07-24] MEDS: DUONEB NEB SCH ×2 (17:35→23:54)
[2017-07-24] MEDS: ROCEPHIN 1 GM in SODIUM CHLORIDE 50 ML IV SCH (17:49)
[2017-07-24] MEDS: SODIUM CHLORIDE 1,000 ML IV SCH (18:57)
[2017-07-24] MEDS ORDERED: NON-FORMULARY MEDICATION (Hydralazine Hcl [Hydralazine Hcl] 25 MG) PO SCH (21:00)
[2017-07-24] MEDS ORDERED: INSULIN DEGLUDEC 55 UNIT SQ SCH (21:00)
[2017-07-24] MEDS: LOPRESSOR PO SCH (21:55)
[2017-07-24] MEDS: APRESOLINE PO SCH (21:55)
[2017-07-25] MEDS: DUONEB NEB SCH ×2 (05:41→10:57)
[2017-07-25] MEDS ORDERED: ISOSORBIDE MONONITRATE 120 MG PO SCH (09:00)
[2017-07-25] MEDS: ROCEPHIN 1 GM in SODIUM CHLORIDE 50 ML IV SCH (09:19)
[2017-07-25] MEDS: BENICAR PO SCH (09:20)
[2017-07-25] MEDS: LOPRESSOR PO SCH ×2 (09:20→20:41)
[2017-07-25] MEDS: APRESOLINE PO SCH ×2 (09:21→20:41)
[2017-07-25] MEDS: IMDUR PO SCH (09:21)
[2017-07-25] MEDS: PROTONIX PO SCH ×2 (09:22→16:58)
--- NOTE | 2017-07-25 16:44 | CT ---
EXAM: CT of the abdomen pelvis without contrast History: Tarry stools Comparison: CT abdomen pelvis 07/01/2017 Technique: Multiplanar CT images through the abdomen pelvis were obtained without the administration of IV contrast Findings: Heart is borderline enlarged. Coronary calcifications. No significant interval change in the chronic left lower lung infiltrates and atelectasis. Stable small chronic left pleural effusion . Status post cholecystectomy. Calcified granulomas seen within the spleen. The liver is mildly enlar ged measuring 13 cm in length. No change in the the the 1.6 cm low-density lesion within the spleen. No focal liver lesions. No peripancreatic inflammation. Postsurgical changes of the bowel. No sujatha wel obstruction. Bladder is not well distended. No free air. Postsurgical changes of ventral herni a repair. No free air and no ascites. Scattered colonic stool. No obvious bowel wall thickening. Subcutaneous edema and skin thickening of the lower anterior abdominal wall and involving the umbilic us. No pathologically enlarged lymph nodes. Nonspecific bilateral perinephric stranding. No renal stones and no hydronephrosis. Atherosclerotic vascular calcifications Impression: 1. Postsurgical changes of the bowel. No bowel obstruction. 2. Cellulitis of the lower anterior abdominal wall and umbilicus. 3. Stable small low-density splenic lesion is indeterminate but most likely benign. Follow-up / fur ther evaluation can be obtained with abdominal MRI or contrast enhanced CT per liver/splenic mass pro tocol. 4. No change in the chronic left lower lung infiltrates and atelectasis and small chronic left pleur al effusion. 5. Mild splenomegaly
[2017-07-25] MEDS: INSULIN DEGLUDEC 55 UNIT SUBCUT SCH (20:41)
[2017-07-25] MEDS: SODIUM CHLORIDE 1,000 ML IV SCH (21:10)
[2017-07-26] MEDS: PROTONIX PO SCH ×2 (05:42→16:46)
[2017-07-26] MEDS: BUMEX PO SCH (05:42)
[2017-07-26] MEDS ORDERED: DEMEROL 50 MG/ML VIAL IVP PRN (07:49)
[2017-07-26] MEDS: ZOFRAN 4 MG/2 ML IVP PRN (08:13)
[2017-07-26] MEDS: ROCEPHIN 1 GM in SODIUM CHLORIDE 50 ML IV SCH (09:35)
[2017-07-26] MEDS: IMDUR PO SCH (09:35)
[2017-07-26] MEDS: APRESOLINE PO SCH ×2 (09:36→20:51)
[2017-07-26] MEDS: BENICAR PO SCH (09:36)
[2017-07-26] MEDS: LOPRESSOR PO SCH ×2 (09:36→20:51)
[2017-07-26] MEDS: SODIUM CHLORIDE 1,000 ML IV SCH (11:57)
[2017-07-26] MEDS ORDERED: LASIX IVP STA (15:05)
[2017-07-26] MEDS ORDERED: TYLENOL PO PRN (16:30)
[2017-07-26] MEDS ORDERED: TYLENOL ONE (16:39)
[2017-07-26] MEDS: INSULIN DEGLUDEC 55 UNIT SUBCUT SCH (20:51)
[2017-07-27] MEDS: PROTONIX PO SCH ×2 (05:48→17:09)
[2017-07-27] MEDS: IMDUR PO SCH (09:42)
[2017-07-27] MEDS: LOPRESSOR PO SCH ×2 (09:42→20:14)
[2017-07-27] MEDS: ROCEPHIN 1 GM in SODIUM CHLORIDE 50 ML IV SCH (09:42)
[2017-07-27] MEDS: APRESOLINE PO SCH ×2 (09:42→20:14)
[2017-07-27] MEDS: BENICAR PO SCH (09:42)
[2017-07-27] MEDS: CARAFATE PO SCH ×3 (12:37→20:14)
[2017-07-27] MEDS: ZOFRAN 4 MG/2 ML IVP PRN (17:12)
[2017-07-27] MEDS: INSULIN DEGLUDEC 55 UNIT SUBCUT SCH (20:15)
[2017-07-28] MEDS: BUMEX PO SCH (05:33)
[2017-07-28] MEDS: PROTONIX PO SCH ×2 (05:33→16:27)
[2017-07-28] MEDS: CARAFATE PO SCH ×4 (05:33→22:13)
[2017-07-28] MEDS: ROCEPHIN 1 GM in SODIUM CHLORIDE 50 ML IV SCH (08:44)
[2017-07-28] MEDS: BENICAR PO SCH (08:44)
[2017-07-28] MEDS: LOPRESSOR PO SCH ×2 (08:44→22:12)
[2017-07-28] MEDS: APRESOLINE PO SCH ×2 (08:44→22:12)
[2017-07-28] MEDS: IMDUR PO SCH (08:44)
[2017-07-28] MEDS: ZOFRAN 4 MG/2 ML IVP PRN (20:09)
[2017-07-28] MEDS: INSULIN DEGLUDEC 55 UNIT SUBCUT SCH (22:12)
[2017-07-29] MEDS: CARAFATE PO SCH ×2 (05:41→11:46)
[2017-07-29] MEDS: PROTONIX PO SCH (05:41)
[2017-07-29] MEDS ORDERED: GI COCKTAIL PO STA (08:23)
[2017-07-29] MEDS: IMDUR PO SCH (08:33)
[2017-07-29] MEDS: ROCEPHIN 1 GM in SODIUM CHLORIDE 50 ML IV SCH (08:33)
[2017-07-29] MEDS: APRESOLINE PO SCH (08:34)
[2017-07-29] MEDS: LOPRESSOR PO SCH (08:34)
[2017-07-29] MEDS: BENICAR PO SCH (08:34)
[2017-07-29 10:02] VITALS: BP 140/65; TEMP 97.9
--- NOTE | 2017-07-29 23:35 | PCM.HOSP ---
- Initial Hospital Care [id number] 70 Minutes Bedside ([id number]): 07/24 - Subsequent Care [id number] 35 Minutes per Day ([id number]): 07/25. 4/. /. 07/28 - Hospital Discharge [id number] More than 30 Minutes ([id number]): 07/29
[2017-07-31] MEDS ORDERED: VITAMIN D PO SCH (09:00)
--- NOTE | 2017-08-07 09:30 | PN ---
DATE OF SERVICE: 07/25/17 SUBJECTIVE: The patient was admitted with acute of chronic heart failure. The patient did have a black tarry stool bowel movement. The nurse did examine. She has been complaining of some abdominal pain. At that time, H & H was ordered and Protonix was ordered twice a day. She is still short of breath with minimal exertion. Leg edema is somewhat better. REVIEW OF SYSTEMS: CONSTITUTIONAL: No fever, no chills. HEENT: Normal. ENDOCRINE: No weight gain, no weight loss. CVS: No angina symptoms. No CHF symptoms. No palpitations. No atypical chest pain for CAD. Shortness of breath. No PND, no orthopnea. RESPIRATORY: No cough, no hemoptysis. GI: No nausea, no vomiting. No abdominal pain. : No hematuria. No polyuria. MUSCULOSKELETAL: No joint swelling. PSYCHIATRIC: Not anxious. No depression. No suicidal thoughts. No homicidal thoughts. SKIN: Intact. No rash. PHYSICAL EXAMINATION: V/S: Blood pressure 136/52, respiratory rate 20, heart rate 57, temperature 98.5 , saturation is 97. HEENT: Normocephalic, atraumatic. Mucosa dry. Pallor positive. NECK: Supple. No JVD, no carotid bruit. No lymphadenopathy. LUNGS: Decreased and basilar crackles. No rales or rhonchi. HEART: S1, S2 normal. No S3. No murmur, gallop or regurgitation. ABDOMEN: Soft, nontender. Bowel sounds active. No rigidity. No rebound or guarding. No CVA tenderness. EXTREMITIES: 2+ edema. No cyanosis, clubbing. MUSCULOSKELETAL: No joint swelling. NEUROLOGIC: Awake, alert, oriented times three. No focal deficit. LYMPHATIC: No lymph nodes palpable. SKIN: Intact. LABS: White count is 6.44, hemoglobin 8.5, hematocrit 24.9, platelet count 153 , sodium 140, potassium 4.3, chloride 108, bicarb 27, BUN 46, creatinine is 1.65 , glucose 110. ASSESSMENT: 1. ACUTE ON CHRONIC RENAL FAILURE 2. ABDOMINAL PAIN WITH BLACK TARRY STOOLS. WILL FOLLOW WITH H & H. 3. CORONARY ARTERY DISEASE, STATUS POST STENT 4. CONGESTIVE HEART FAILURE 5. ACUTE ON CHRONIC KIDNEY DISEASE 6. ANEMIA WITH A GI BLEED 7. GERD 9. ANXIETY/DEPRESSION 10. DEPENDENT EDEMA PLAN: 1. H & H every 12 hours. 2. Protonix 40 mg p.o. twice daily. 3. Continue Rocephin 1 gram daily. 4. Demerol prn for the pain. 5. Nausea medication as needed. 6. I & O's. TIME SPENT: More than 35 minutes MTDD
--- NOTE | 2017-08-07 09:51 | PN ---
DATE OF SERVICE: 07/26/17 SUBJECTIVE: The patient was admitted with acute on chronic heart failure. The patient did have black tarry bowel movement this morning. H & H did drop from 9.1 to 8.6. Some nausea and abdominal pain. The patient did have a CT scan of the abdomen yesterday did not show any acute findings. Ordered amylase and lipase, which were negative. REVIEW OF SYSTEMS: CONSTITUTIONAL: No fever, no chills. HEENT: Normal. ENDOCRINE: No weight gain, no weight loss. CVS: No angina symptoms. No CHF symptoms. No palpitations. No atypical chest pain for CAD. No shortness of breath. No PND, no orthopnea. RESPIRATORY: No cough, no hemoptysis. GI: Nausea, no vomiting. Abdominal pain. Black tarry stool. : No hematuria. No polyuria. MUSCULOSKELETAL: No joint swelling. PSYCHIATRIC: Not anxious. No depression. No suicidal thoughts. No homicidal thoughts. SKIN: Intact. No rash. PHYSICAL EXAMINATION: V/S: Blood pressure 142/66, respiratory rate 16, heart rate 58, temperature 97.7 , saturation 95. HEENT: Normocephalic, atraumatic. Mucosa dry. NECK: Supple. No JVD, no carotid bruit. No lymphadenopathy. LUNGS: Decreased basilar crackles. No rales or rhonchi. HEART: S1, S2 normal. No S3. No murmur, gallop or regurgitation. ABDOMEN: Epigastric discomfort present. Bowel sounds active. No rigidity. No rebound or guarding. No CVA tenderness. EXTREMITIES: No cyanosis, clubbing. 2+ edema. MUSCULOSKELETAL: No joint swelling. NEUROLOGIC: Awake, alert, oriented times three. No focal deficit. LYMPHATIC: No lymph nodes palpable. SKIN: Intact. LABS: Sodium 142, potassium 4.6, chloride 108, bicarb 24, BUN 39, creatinine 1.46, glucose 79, white count 6.40, hemoglobin 8.6, hematocrit 26.1, platelet count 162. ASSESSMENT: 1. EPIGASTRIC PAIN WITH BLACK TARRY STOOLS AND HEMOGLOBIN DROPPING 2. ACUTE ON CHRONIC HEART FAILURE 3. HYPERTENSION 4. CHRONIC KIDNEY DISEASE 5. ANEMIA 6. CORONARY ARTERY DISEASE, STATUS POST STENT 7. CONGESTIVE HEART FAILURE PLAN: 1. Type and screen 2 units and transfuse 2 units, in view of symptomatic heart failure and anemia. 2. Continue to do the H & H every 12 hours. 3. Protonix 40 mg p.o. twice daily. 4. Stool for occult blood test. TIME SPENT: More than 35 minutes MTDD
--- NOTE | 2017-08-13 14:40 | PN ---
DATE OF SERVICE: 07/28/17 SUBJECTIVE: The patient was admitted with anemia, acute on chronic heart failure needing two units of blood transfusion. Still having epigastric discomfort and tenderness. Amylase and lipase were already negative; 46 and 3.2. REVIEW OF SYSTEMS: CONSTITUTIONAL: No fever, no chills. HEENT: Normal. ENDOCRINE: No weight gain, no weight loss. CVS: No angina symptoms. No CHF symptoms. No palpitations. No atypical chest pain for CAD. No shortness of breath. No PND, no orthopnea. RESPIRATORY: No cough, no hemoptysis. GI: No nausea, no vomiting. No abdominal pain. : No hematuria. No polyuria. MUSCULOSKELETAL: No joint swelling. PSYCHIATRIC: Not anxious. No depression. No suicidal thoughts. No homicidal thoughts. SKIN: Intact. No rash. PHYSICAL EXAMINATION: V/S: Blood pressure 174/67, respiratory rate 16, heart rate 66, temperature 98.2 with saturation 96%. HEENT: Normocephalic, atraumatic. Mucosa dry. NECK: Supple. No JVD, no carotid bruit. No lymphadenopathy. Epigastric discomfort. LUNGS: Basilar crackles. Clear to auscultation. No rales or rhonchi. HEART: S1, S2 normal. No S3. Systolic murmur, gallop or regurgitation. ABDOMEN: Soft, nontender. Bowel sounds active. No rigidity. No rebound or guarding. No CVA tenderness. EXTREMITIES: No cyanosis, clubbing. 2+ leg edema. MUSCULOSKELETAL: No joint swelling. NEUROLOGIC: Awake, alert, oriented times three. No focal deficit. LYMPHATIC: No lymph nodes palpable. SKIN: Intact. LABS: Sodium 141, potassium 4.4, chloride 107, bicarb 24, BUN 37, creatinine 1.56, glucose 96, WBC 8.82, hgb 10.5, hct 30.8, plt count 162. ASSESSMENT: 1. Acute on chronic heart failure 2. Symptomatic anemia needing two units of blood transfusion 3. Black tarry stools 4. Acute on chronic renal failure 5. CAD 6. Bypass surgery 7. Diabetes 8. Hypertension PLAN: 1. Continue the Rocephin 1 gram daily 2. DUO NEBS 3. Carafate 4. Protonix 5. Daily I&O's TIME SPENT: More than 35 minutes MTDD
--- NOTE | 2017-08-13 15:08 | DS ---
DATE OF SERVICE: 07/29/17 FINAL DIAGNOSIS: 1. Acute on chronic hear failure 2. Bilateral leg edema 3. Anemia with positive occult blood test needing two units blood transfusion 4. Symptomatic anemia 5. Acute on chronic renal failure 6. Upper respiratory infection 7. CAD status post stent and bypass surgery 8. Atrial fibrillation status post ablation 2009 9. Pulmonary hypertension 10.Pleural effusion 11.History fo CABG 12.Hysterectomy 13.Cholecystectomy 14.Neal EN Y 15.Umbilical hernia DISCHARGE INSTRUCTIONS: Discharge the patient home. Continue the rest of the home medications. Followup with Dr. Daniels today afternoon as scheduled. MEDICATIONS AT DISCHARGE: Hydralazine Tresiba Metoprolol Tylenol Bumex Vitamin D 3 Isosorbide Benicar Zofran NEW PRESCRIPTIONS: Zofran 4mg Q 6 hours PRN Bumex 1mg every other day DIET INSTRUCTIONS: Consistent Carbohydrate ACTIVITY: Resume as tolerated DISEASE SPECIFIC EDUCATION: Anemia needing GI endoscopy and colonoscopy been discussed. The patient is supposed to go to the [facility] after being cleared by Dr. Daniels today afternoon. CHF Fluid control Dependant edema been discussed and verbalized understanding. HOSPITAL COURSE: Delmy Ambrocio who is a 57 year old female with history of bypass surgery, coronary artery disease, CHF and chronic kidney disease came to the office complaining of worsening of the shortness of breath. The patient was seen 2-3 days before in the office and advised to take the extra Bumex. It was not helping even though she lost about 2 pounds by the time she came back still short of breath with minimal exertion. At that time the patient was admitted to the hospital. Hgb was 9.1, ABG showed the pH 7.457, pCo2 37.1, po2 81. BUN 46, creatinine 1.46, BNP 509. CT chest showed by the bibasilar pleural effusion left sided more than the right. Dose of Lasix was given. H&H was ordered. Repeat hgb went down to 8.5. BUN and creatinine was gradually getting better. Urine is leukocyte esterase positive. Type and cross match two units and transfuse it because the patient was short of breath with hgb of 8.5. Accu- checks with the coverage done. Bumex one dose was given. The patient started having epigastric pain and nausea. Started on the Carafate and Protonix and Zofran. Amylase and Lipase was negative. CT abdomen and pelvis was done recently and did not show any acute problems. Gradually the patient did improve. IV Lasix 40mg was given. Lost almost 8 pounds. Up and about walking, still was nausea but the patient had appointment with Director Of Vocational Training today, Dr. Daniels so the patient being released to see Dr. Daniels at 3:30. If in case the patient does not get better or condition gets worse we will be seeing her in the office within two days. TIME SPENT: MORE THAN 45-50 MINUTES ИВАН
== END 2017-07-29 13:55 | disposition home or self-care (01) | DRG 292 ==
LOC: MEDSURG A 15:32
PROVIDERS: ADMIT Emergency Medicine; ATTEND Emergency Medicine
PROC: 30233N1 Transfusion of Nonautologous Red Blood Cells into Peripheral Vein, Percutaneous Approach (ICD-10-PCS; principal; 2017-07-26)
PROC: 30233N1 Transfusion of Nonautologous Red Blood Cells into Peripheral Vein, Percutaneous Approach (ICD-10-PCS; 2017-07-26)
DX: I50.9 Heart failure, unspecified (principal); D62 Acute posthemorrhagic anemia; N17.9 Acute kidney failure, unspecified; J90 Pleural effusion, not elsewhere classified; K92.1 Melena; R60.0 Localized edema; R10.13 Epigastric pain; I10 Essential (primary) hypertension; I12.9 Hypertensive chronic kidney disease with stage 1 through stage 4 chronic kidney disease, or unspecified chronic kidney disease; E11.22 Type 2 diabetes mellitus with diabetic chronic kidney disease; N18.3 Chronic kidney disease, stage 3 (moderate); J06.9 Acute upper respiratory infection, unspecified; I25.10 Atherosclerotic heart disease of native coronary artery without angina pectoris; I27.20 Pulmonary hypertension, unspecified; K21.9 Gastro-esophageal reflux disease without esophagitis; F41.9 Anxiety disorder, unspecified; F32.9 Major depressive disorder, single episode, unspecified; Z95.1 Presence of aortocoronary bypass graft; Z95.5 Presence of coronary angioplasty implant and graft; Z98.84 Bariatric surgery status; Z79.4 Long term (current) use of insulin; Z79.899 Other long term (current) drug therapy
CPT/HCPCS: 36415; 36430; 80053; 81001; 82150; 82550; 82803; 82962; 83690; 83880; 84484; 85014; 85018; 85025; 86850; 86900; 86922; 87086; 93005; 93010

== ENCOUNTER 2017-08-06 15:57 | Outpatient (CLI) | END 2017-08-06 15:58 | disposition home or self-care (01) | LOC: LAB 15:57 | PROVIDERS: ATTEND Emergency Medicine | DX: I10 Essential (primary) hypertension (principal); I25.118 Atherosclerotic heart disease of native coronary artery with other forms of angina pectoris | CPT/HCPCS: 36415; 85025 ==

== ENCOUNTER 2017-09-25 15:53 | Outpatient (CLI) | END 2017-09-25 15:54 | disposition home or self-care (01) | LOC: RHC-LAB 15:53 | PROVIDERS: ATTEND Emergency Medicine | DX: E11.9 Type 2 diabetes mellitus without complications (principal); I10 Essential (primary) hypertension; I50.22 Chronic systolic (congestive) heart failure; M17.12 Unilateral primary osteoarthritis, left knee; N18.3 Chronic kidney disease, stage 3 (moderate) | CPT/HCPCS: 36415; 80053; 80061; 83036; 84443; 85025 ==

== ENCOUNTER 2018-01-11 16:32 | Outpatient (CLI) ==
--- NOTE | 2018-01-12 08:55 | DI ---
EXAM: Chest two view, frontal and lateral views. HISTORY: Shortness of breath. COMPARISON: 07/24/2017, 05/26/2017, 10/10/2014. FINDINGS: Post CABG changes noted. The heart size is at the upper limits of normal. There is no pu lmonary vascular congestion. Calcified granulomatous changes noted. Chronic left pleural effusion w ith adjacent rounded atelectasis again noted. The lungs otherwise clear. No pneumothorax identified . Clips seen in the upper abdomen. No acute osseous abnormality identified. Since the prior study, there has been no significant interval change. IMPRESSION: 1. No acute cardiopulmonary process. 2. Stable small left pleural effusion and adjacent rounded atelectasis
== END 2018-01-11 16:33 | disposition home or self-care (01) ==
LOC: LAB 16:32
PROVIDERS: ATTEND Nurse Practitioner Family
DX: E11.9 Type 2 diabetes mellitus without complications (principal); R06.02 Shortness of breath; R60.9 Edema, unspecified; I10 Essential (primary) hypertension
CPT/HCPCS: 36415; 80053; 83036; 83880; 85025

== ENCOUNTER 2018-01-21 06:05 | Outpatient (CLI) | END 2018-01-21 06:06 | disposition home or self-care (01) | LOC: LAB 06:05 | PROVIDERS: ATTEND Family Medicine | DX: N18.3 Chronic kidney disease, stage 3 (moderate) (principal); I10 Essential (primary) hypertension; R79.89 Other specified abnormal findings of blood chemistry; I50.22 Chronic systolic (congestive) heart failure; E78.5 Hyperlipidemia, unspecified | CPT/HCPCS: 36415; 80053 ==

== ENCOUNTER 2018-02-05 07:09 | Outpatient (CLI) | payer OTHER | END 2018-02-05 07:10 | disposition home or self-care (01) | LOC: RHC-LAB 07:09 | PROVIDERS: ATTEND Nurse Practitioner Family | DX: J02.9 Acute pharyngitis, unspecified (principal) | CPT/HCPCS: 87651 ==

== ENCOUNTER 2018-05-05 16:05 | Outpatient (CLI) | payer OTHER ==
--- NOTE | 2018-05-05 17:44 | US ---
EXAM: ULTRASOUND LOWER EXTREMITY VENOUS DOPPLER EXAM HISTORY: Pain of the lower leg, left. FINDINGS: Left lower extremity venous Doppler exam. Real time adorno-scale, Doppler spectral analysis and color-flow Doppler imaging performed. The veins targeted for evaluation include the common femo ral, greater saphenous, profundus, femoral, popliteal, peroneal, anterior tibial and posterior tibial . The evaluated veins demonstrated normal spontaneous flow and compression without evidence of thr ombosis. IMPRESSION: No venous thrombosis identified within the areas evaluated.
== END 2018-05-05 16:06 | disposition home or self-care (01) ==
LOC: RAD 16:05
PROVIDERS: ATTEND Family Medicine
DX: M79.662 Pain in left lower leg (principal); R60.9 Edema, unspecified